=== PATIENT | male | born 1995 | race Caucasian/White ===

== ENCOUNTER 2018-04-29 02:12 | Emergency (ER) | payer OTHER ==
--- NOTE | 2018-04-29 02:50 | ED ---
Abdominal Pain/Male - HPI Summary HPI Summary: This patient is a 22 year old M presenting to [facility] with a chief complaint of epigastric and RLQ pain that began a few days ago but was worse this morning. The patient rates the pain 3/10 in severity. Patient reports subjective fever, nausea, chills, cough, rhinorrhea, and sore throat. Patient denies vomiting. Pt states he was googling his sx and is concerned about his appendix. Hx IBS. Last dose of ibuprofen was 200mg at 1800. - History of Current Complaint Chief Complaint: EDAbdPain Stated Complaint: FEVER Hx Obtained From: Patient Onset/Duration: Lasting Days, Still Present Timing: Constant Severity Initially: Mild Severity Currently: Mild Pain Intensity: 3 Pain Scale Used: 0-10 Numeric Location: Discrete At: RLQ, Epigastric Radiates: No Associated Signs And Symptoms: Positive: Fever - Allergies/Home Medications Allergies/Adverse Reactions: Allergies Allergy/AdvReac Type Severity Reaction Status Date / Time No Known Allergies Allergy Verified 04/29/18 02:17 PMH/Surg Hx/FS Hx/Imm Hx Cardiovascular History: Denies: Hx Congenital Heart Disease GI History: Reports: Hx Irritable Bowel Musculoskeletal History: Denies: Hx Congenital Bone Abnormalities, Hx Fibromyalgia Infectious Disease History: No Infectious Disease History: Denies: Traveled Outside the [place] in Last 30 Days - Family History Known Family History: Positive: Non-Contributory Negative: Seizure Disorder - Social History Occupation: Student Lives: Dormitory/Roommates Alcohol Use: Rare Hx Substance Use: No Substance Use Type: Reports: None Hx Tobacco Use: No Smoking Status (MU): Never Smoked Tobacco Review of Systems Positive: Fever, Chills Positive: Sore Throat, Nasal Discharge Positive: Cough Positive: Abdominal Pain, Nausea. Negative: Vomiting All Other Systems Reviewed And Are Negative: Yes Physical Exam - Summary Physical Exam Summary: VITAL SIGNS: Reviewed. GENERAL: Patient is a well-developed and nourished male who is lying comfortable in the stretcher. Patient is not in any acute respiratory distress. HEAD AND FACE: No signs of trauma. No ecchymosis, hematomas or skull depressions. No sinus tenderness. EYES: PERRLA, EOMI x 2, No injected conjunctiva, no nystagmus. EARS: Hearing grossly intact. Ear canals and tympanic membranes are within normal limits. MOUTH: Oropharynx within normal limits. NECK: Supple, trachea is midline, no adenopathy, no JVD, no carotid bruit, no c- spine tenderness, neck with full ROM. CHEST: Symmetric, no tenderness at palpation LUNGS: Clear to auscultation bilaterally. No wheezing or crackles. CVS: Regular rate and rhythm, S1 and S2 present, no murmurs or gallops appreciated. ABDOMEN: Soft, TTP in RLQ. No signs of distention. No rebound no guarding, and no masses palpated. Bowel sounds are normal. EXTREMITIES: FROM in all major joints, no edema, no cyanosis or clubbing. NEURO: Alert and oriented x 3. No acute neurological deficits. Speech is normal and follows commands. SKIN: Dry and warm Triage Information Reviewed: Yes Vital Signs On Initial Exam: Initial Vitals Temp Pulse Resp BP Pulse Ox 97.1 F 115 20 140/86 98 04/29/18 02:15 04/29/18 02:15 04/29/18 02:15 04/29/18 02:15 04/29/18 02:15 Vital Signs Reviewed: Yes Diagnostics - Vital Signs Vital Signs Temp Pulse Resp BP Pulse Ox 04/29/18 02:15 97.1 F 115 20 140/86 98 - Laboratory Result Diagrams: 04/29/18 04:11 04/29/18 04:11 Lab Statement: Any lab studies that have been ordered have been reviewed, and results considered in the medical decision making process. - Radiology CXR Radiology Interpretation Completed By: ED Physician Summary of Radiographic Findings: Left lower lobe infiltrate. Pending official report. Abdominal Pain Fem Course/Dx - Course Assessment/Plan: This patient is a 22 year old M presenting to [facility] with a chief complaint of epigastric and RLQ pain that began a few days ago but was worse this morning. The patient rates the pain 3/10 in severity. Patient reports subjective fever, nausea, chills, cough, rhinorrhea, and sore throat. Patient denies vomiting. Pt states he was googling his sx and is concerned about his appendix. Hx IBS. Last dose of ibuprofen was 200mg at 1800. CXR shows , Left lower lobe infiltrate. Pending official report. CT ABD/Pelvis reveals, per radiologist,. 1. Left lower lobe infiltrate and consolidation consistent with pneumonia. 2. Otherwise negative CT abdomen/pelvis. A normal appendix is seen. No renal or. ureteral calculi are evident and there is no evidence of obstructive uropathy. Bloodwork and UA obtained. Pt was negative for influenza a,b, strep, and mono. In the ED course the patient was given toradol, IV fluids , toradol, potassium, and tylenol. Patient will be discharged with prescription for levaquin and follow up from PCP. The patient is agreeable with this plan. - Diagnoses Provider Diagnoses: PNA (pneumonia) Discharge - Sign-Out/Discharge Documenting (check all that apply): Patient Departure - Discharge Plan Condition: Stable Disposition: HOME Prescriptions: Ibuprofen TAB* [Motrin TAB* 800 MG] 800 mg PO Q6H PRN #30 tab PRN Reason: Fever/Pain Levofloxacin TAB* [Levaquin TAB*] 750 mg PO DAILY #10 tab Patient Education Materials: Pneumonia (ED) Forms: *School Release [facility] - Additional Instructions: RETURN TO THE EMERGENCY DEPARTMENT FOR CHANGING OR WORSENING SYMPTOMS - Attestation Statements Document Initiated by Scribe: Yes Documenting Scribe: Gasper Manrique Provider For Whom Scribe is Documenting (Include Credential): Marsha Dubois MD Scribe Attestation: Gasper Freire, scribed for Marsha Dubois MD on 04/29/18 at 0650. Status of Scribe Document: Ready
[2018-04-29] MEDS ORDERED: NS 0.9% 1000 ML* 2,000 ML IV ONE (03:54)
[2018-04-29] MEDS ORDERED: Ketorolac INJ* 30 MG/ML 1 ML VIAL IV PUSH ONE (03:54)
[2018-04-29] MEDS ORDERED: Acetaminophen TAB* 325 MG PO ONE (03:55)
[2018-04-29 04:19] LABS: Hematocrit 43 % (42-52); Hemoglobin 14.7 g/dl (14.0-18.0); Mean Corpuscular HGB Conc 34 g/dl (31-36); Mean Corpuscular Hemoglobin 29 pg (27-31); Mean Corpuscular Volume 84 fL (80-94); Mean Platelet Volume 8.6 fL (7.4-10.4); Platelet Count 204 10^3/ul (150-450); Red Cell Distribution Width 14 % (10.5-15); White Blood Count 8.8 10^3/ul (3.5-10.8)
[2018-04-29 04:28] LABS: ABS Basophils 0 10^3/ul (0-0.2); ABS Eosinophils 0.1 10^3/ul (0-0.6); ABS Lymphocytes 1.3 10^3/ul (1.0-4.8); ABS Neutrophils 6.1 10^3/ul (1.5-7.7); ABS Nucleated RBC 0 10^3/ul; Nucleated Red Blood Cells % 0.1
[2018-04-29 04:30] LABS: Urine Appearance Clear; Urine Blood 1+ (Negative); Urine Color Yellow; Urine Ketones Negative (Negative); Urine Protein Negative (Negative); Urine Red Blood Cell 1+(3-5/hpf) (Absent); Urine Specific Gravity 1.019 (1.010-1.030); Urine Urobilinogen Negative (Negative); Urine White Blood Cell Trace(0-5/hpf) (Absent)
[2018-04-29 04:38] LABS: EGFR Non-African American 93.1 (>60)
[2018-04-29 04:45] LABS: Monocytes % 6 %
[2018-04-29] MEDS ORDERED: Iohexol 300* (CONTRAST) 10 ML SDV IV ONE (06:02)
[2018-04-29] MEDS ORDERED: Potassium Chlor TAB* 20 MEQ TAB.ER PO ONE (06:34)
[2018-04-29] MEDS ORDERED: Levofloxacin TAB* 250 MG PO ONE (06:35)
[2018-04-29 06:46] VITALS: BP 122/69
== END 2018-04-29 06:57 | disposition home or self-care (01) ==
LOC: ED 02:12
DX: J18.9 Pneumonia, unspecified organism (principal); R10.13 Epigastric pain; R10.31 Right lower quadrant pain
CPT/HCPCS: 36415; 71045; 74177; 80053; 81003; 81015; 83605; 85025; 85060; 86140; 86308; 87040; 87086; 87651; 96374; 99283; A9270-GY; J1885; Q9967